=== PATIENT | female | born 1975 | race Two or more races ===

== ENCOUNTER 2020-10-04 20:00 | Emergency (ER) | payer OTHER ==
[~2020-10-04] VITALS: Ht 154.9 cm; Wt 80.0 kg
[2020-10-04] MEDS ORDERED: MORPHINE SULFATE 4 MG/ML, 1ML IVPush PRN (22:00)
[2020-10-04] MEDS ORDERED: SODIUM CHLORIDE FLUSH 10ML SYR IVF ONE (22:00)
[2020-10-04] MEDS ORDERED: ONDANSETRON 2MG/ML, 2ML IVPush ONE (22:00)
[2020-10-04 22:23] LABS: BASOPHILS % (AUTO) 1 % (0-1); EOSINOPHILS % (AUTO) 1 % (1-7); LYMPHOCYTES % (AUTO) 35 % (22-44); MEAN CORPUSCULAR HEMOGLOBIN 26.6 pg (27.0-34.8); MEAN CORPUSCULAR HGB CONC 33.1 g/dL (32.4-35.8); MEAN PLATELET VOLUME 8.9 fL (7.4-10.4); MONOCYTES % (AUTO) 9 % (2-9); NEUTROPHILS % (AUTO) 54 % (42-75); PLATELET COUNT 214 x10^3/uL (130-400); RED BLOOD COUNT 4.93 x10^6/uL (3.82-5.3); RED CELL DISTRIBUTION WIDTH 25.2 % (9.6-15.2)
[2020-10-04 22:30] LABS: ALANINE AMINOTRANSFERASE 58 U/L (12-78); ALBUMIN 3.8 g/dL (3.4-5.0); ANION GAP 3 mmol/L (5-15); CALCIUM 9.3 mg/dL (8.5-10.1); CHLORIDE 105 mmol/L (98-107); CREATININE 0.76 mg/dL (0.55-1.02)
[2020-10-04 22:35] LABS: ALKALINE PHOSPHATASE 95 U/L (45-117); BILIRUBIN,TOTAL 0.3 mg/dL (0.2-1.0)
[2020-10-04 22:54] LABS: ANISOCYTOSIS 1+; MICROCYTOSIS 2+; OVALOCYTES 1+
[2020-10-04 22:55] LABS: <PLATELET ESTIMATE> ADEQUATE; <PLT MORPHOLOGY> NORMAL PLT MORPH
--- NOTE | 2020-10-05 01:33 | NUR ---
PT BACK TO ROOM
[2020-10-05] MEDS ORDERED: KETOROLAC 30 MG/1 ML ONE (02:04)
[2020-10-05 02:18] LABS: MICROSCOPIC AUTO
[2020-10-05] MEDS ORDERED: KETOROLAC 15 MG/1ML IM ONE (02:30)
[2020-10-05] MEDS ORDERED: ONDANSETRON ODT 4 MG ONE (02:53)
[2020-10-05] MEDS ORDERED: CEFTRIAXONE 1,000 MG ONE (02:53)
[2020-10-05] MEDS ORDERED: OXYcodone/APAP 5/325MG TABLET ONE (02:54)
[2020-10-05] MEDS ORDERED: ONDANSETRON ODT 4 MG PO ONE (03:00)
[2020-10-05] MEDS ORDERED: OXYcodone/APAP 5/325MG TABLET PO ONE (03:00)
[2020-10-05] MEDS ORDERED: CEFTRIAXONE 1,000 MG IM ONE (03:00)
[2020-10-05 03:02] VITALS: BP 136/79
== END 2020-10-05 03:50 | disposition home or self-care (01) ==
LOC: ED 10-05 01:00
DX: N13.2 Hydronephrosis with renal and ureteral calculous obstruction (principal); R10.32 Left lower quadrant pain
CPT/HCPCS: 36415; 74176; 80053; 81001; 83690; 84703; 85025; 87086; 96372; 99284; J0696; J1885; Q0162